=== PATIENT | female | born 1975 | race Caucasian/White ===

== ENCOUNTER → 2018-07-15 | Outpatient (CLI) | payer OTHER ==
[~2018-07-15] MED LIST: CHOL10002; CITA20 PO; CYCL10; CYCL10 PO; Flonase 0.05% N16 GM; GABA300 PO; HYDACE5 PO; IRON325 MG PO; IUD; LORA1 PO; Maxalt Mlt5 MG PO; NAPR500 PO; OMEP20ER PO; OXYC5; PROM25 PO; Percocet 5-3251 EACH PO; RXHYDACE PO; RXPROM25 PO; TAMS.4ER; TRAM50 PO; VENL150ER PO; Zofran Odt4 MG SL
[2018-07-15 08:31] LABS: BASOPHILS ABSOLUTE AUTO 0.04 K/mm3 (0.00-0.23); BASOPHILS PERCENT AUTO 1 % (0-2); EOSINOPHILS ABSOLUTE AUTO 0.08 K/mm3 (0.00-0.68); EOSINOPHILS PERCENT AUTO 1 % (0-6); Hematocrit 41.5 % (33.0-51.0); Hemoglobin 13.9 g/dL (11.5-16.0); IMMATURE GRAN ABSOLUTE AUTO 0.02 K/mm3 (0.00-0.10); IMMATURE GRAN PERCENT AUTO 0 % (0-1); LYMPHOCYTES ABSOLUTE AUTO 1.65 K/mm3 (0.84-5.20); LYMPHOCYTES PERCENT AUTO 24 % (21-46); MONOCYTES PERCENT AUTO 7 % (4-13); Mean Corpuscular HGB 29.3 pg (26.0-34.0); Mean Corpuscular HGB Conc 33.5 g/dL (31.5-36.5); Mean Corpuscular Volume 88 fL (80-100); Mean Platelet Volume 9.8 fL (9.1-12.4); NEUTROPHILS ABSOLUTE AUTO 4.61 K/mm3 (1.96-9.15); NEUTROPHILS PERCENT AUTO 67 % (41-73); Platelet Count 298 K/mm3 (150-400); RDW Coefficient Variation 12.5 % (11.7-14.2); Red Blood Cell Count 4.74 M/mm3 (3.80-5.20)
[2018-07-15 08:44] LABS: Alanine Aminotransfer (ALT/SGP 28 U/L (12-78); Albumin, Blood 3.6 g/dL (3.4-5.0); Albumin/Globulin Ratio 1.1 (0.8-1.8); Alk Phos 107 U/L (40-126); Anion Gap 9 mmol/L (6-16); Aspartate Aminotrans (AST/SGOT 15 U/L (12-37); Bilirubin, Total 0.4 mg/dL (0.1-1.0); Blood Urea Nitrogen 11 mg/dL (8-24); Bun/Creatinine Ratio 15.9 (12.0-20.0); CO2, Blood 26 mmol/L (21-32); Calcium, Blood 9.8 mg/dL (8.5-10.1); Chloride, Blood 104 mmol/L (98-108); Creatinine, Blood 0.69 mg/dL (0.40-1.00); Globulin, Blood 3.4 g/dL (2.2-4.0); Glomerular Filtration Rate >60 (60-); Glucose, Blood 95 mg/dL (70-99); Potassium, Blood 4.1 mmol/L (3.5-5.5); Sodium, Blood 139 mmol/L (136-145)
== END | disposition home or self-care (01) ==
LOC: LAB EV 08:13 → LAB SHORT 08:13
PROVIDERS: General Practice
DX: R10.9 Unspecified abdominal pain (principal)
CPT/HCPCS: 80053; 85025

== ENCOUNTER → 2018-07-19 | Outpatient (CLI) | payer OTHER ==
[2018-07-19 08:24] LABS: BASOPHILS ABSOLUTE AUTO 0.04 K/mm3 (0.00-0.23); BASOPHILS PERCENT AUTO 1 % (0-2); EOSINOPHILS PERCENT AUTO 2 % (0-6); Hematocrit 41.8 % (33.0-51.0); Hemoglobin 13.9 g/dL (11.5-16.0); IMMATURE GRAN ABSOLUTE AUTO 0.03 K/mm3 (0.00-0.10); IMMATURE GRAN PERCENT AUTO 1 % (0-1); LYMPHOCYTES ABSOLUTE AUTO 1.72 K/mm3 (0.84-5.20); LYMPHOCYTES PERCENT AUTO 31 % (21-46); MONOCYTES ABSOLUTE AUTO 0.35 K/mm3 (0.16-1.47); MONOCYTES PERCENT AUTO 6 % (4-13); Mean Corpuscular HGB 29.1 pg (26.0-34.0); Mean Corpuscular HGB Conc 33.3 g/dL (31.5-36.5); Mean Corpuscular Volume 88 fL (80-100); Mean Platelet Volume 9.6 fL (9.1-12.4); NEUTROPHILS ABSOLUTE AUTO 3.29 K/mm3 (1.96-9.15); NEUTROPHILS PERCENT AUTO 60 % (41-73); Platelet Count 293 K/mm3 (150-400); RDW Coefficient Variation 12.7 % (11.7-14.2); RDW Standard Deviation 40.1 fL (35.1-46.3); Red Blood Cell Count 4.77 M/mm3 (3.80-5.20); White Blood Cell Count 5.53 K/mm3 (4.00-11.30)
== END | disposition home or self-care (01) ==
LOC: LAB EV 08:20 → LAB SHORT 08:20
PROVIDERS: Physician Assistant
DX: R10.2 Pelvic and perineal pain (principal)
CPT/HCPCS: 85025

== ENCOUNTER → 2018-10-19 | Outpatient (CLI) | payer OTHER ==
[~2018-10-19] MED LIST changes: +AIMOVIG AU70 MG/1 ML SC; -CYCL10; -OMEP20ER PO; +OMEPRAZOLE MAGN20 MG PO
[2018-10-19 15:19] LABS: BASOPHILS ABSOLUTE AUTO 0.05 K/mm3 (0.00-0.23); BASOPHILS PERCENT AUTO 1 % (0-2); EOSINOPHILS ABSOLUTE AUTO 0.11 K/mm3 (0.00-0.68); EOSINOPHILS PERCENT AUTO 2 % (0-6); Hematocrit 42.4 % (33.0-51.0); Hemoglobin 13.6 g/dL (11.5-16.0); IMMATURE GRAN ABSOLUTE AUTO 0.02 K/mm3 (0.00-0.10); IMMATURE GRAN PERCENT AUTO 0 % (0-1); LYMPHOCYTES ABSOLUTE AUTO 1.94 K/mm3 (0.84-5.20); LYMPHOCYTES PERCENT AUTO 26 % (21-46); MONOCYTES ABSOLUTE AUTO 0.47 K/mm3 (0.16-1.47); MONOCYTES PERCENT AUTO 6 % (4-13); Mean Corpuscular HGB 28.8 pg (26.0-34.0); Mean Corpuscular HGB Conc 32.1 g/dL (31.5-36.5); Mean Corpuscular Volume 90 fL (80-100); Mean Platelet Volume 9.9 fL (9.1-12.4); NEUTROPHILS ABSOLUTE AUTO 4.98 K/mm3 (1.96-9.15); NEUTROPHILS PERCENT AUTO 66 % (41-73); Platelet Count 327 K/mm3 (150-400); RDW Coefficient Variation 12.5 % (11.7-14.2); RDW Standard Deviation 41.1 fL (35.1-46.3); Red Blood Cell Count 4.72 M/mm3 (3.80-5.20); White Blood Cell Count 7.57 K/mm3 (4.00-11.30)
== END | disposition home or self-care (01) ==
LOC: LAB SHORT 13:54 → LAB 13:54
PROVIDERS: Obstetrics & Gynecology
DX: Z01.812 Encounter for preprocedural laboratory examination (principal); N73.6 Female pelvic peritoneal adhesions (postinfective); R10.2 Pelvic and perineal pain; G89.29 Other chronic pain
CPT/HCPCS: 36415; 85025

== ENCOUNTER 2018-10-25 08:44 | Day surgery (SDC) | payer OTHER ==
--- NOTE | 2018-10-25 09:23 | NUR ---
Ambulatory in Day Surgery History, Chart, Medications and Allergies reviewed before start of procedure. Lungs clear T/O to Auscultation. Patient confirms NPO status and agrees with scheduled surgery. Pre-Op teaching done. Pt verbalizes understanding.
[2018-10-25 17:24] LABS: BASOPHILS ABSOLUTE AUTO 0.01 K/mm3 (0.00-0.23); BASOPHILS PERCENT AUTO 0 % (0-2); EOSINOPHILS PERCENT AUTO 0 % (0-6); Hematocrit 39.2 % (33.0-51.0); Hemoglobin 12.7 g/dL (11.5-16.0); IMMATURE GRAN ABSOLUTE AUTO 0.04 K/mm3 (0.00-0.10); IMMATURE GRAN PERCENT AUTO 0 % (0-1); LYMPHOCYTES ABSOLUTE AUTO 0.46 K/mm3 (0.84-5.20); LYMPHOCYTES PERCENT AUTO 4 % (21-46); MONOCYTES ABSOLUTE AUTO 0.29 K/mm3 (0.16-1.47); MONOCYTES PERCENT AUTO 2 % (4-13); Mean Corpuscular HGB 29.3 pg (26.0-34.0); Mean Corpuscular HGB Conc 32.4 g/dL (31.5-36.5); Mean Corpuscular Volume 91 fL (80-100); Mean Platelet Volume 9.7 fL (9.1-12.4); NEUTROPHILS ABSOLUTE AUTO 11.52 K/mm3 (1.96-9.15); NEUTROPHILS PERCENT AUTO 94 % (41-73); Platelet Count 291 K/mm3 (150-400); RDW Coefficient Variation 12.5 % (11.7-14.2); Red Blood Cell Count 4.33 M/mm3 (3.80-5.20); White Blood Cell Count 12.32 K/mm3 (4.00-11.30)
--- NOTE | 2018-10-25 18:08 | NUR ---
SHIFT SUMMARY: STABLE IN BED PT POD0 LAVH. PT IS IN BED EATING DINNER. PT HAS HAD FIRST COURSE OF ABX, LACTATED RINGERS RUNNING. C/O PAIN 5/10, PT STATES ACCEPTABLE LEVEL OF 5. PAIN MEDS ADMINISTERED PER PRN. LAPROSCOPIC SITES MINIMAL/NO DRAINAGE. STERI STRIPS IN PLACE RLQ AND LLQ, BAND AID IN PLACE MIDLINE. ARCHER IN PLACE, DRAINING, PATENT CLEAR/PINKISH.
[2018-10-26 04:52] LABS: BASOPHILS ABSOLUTE AUTO 0.02 K/mm3 (0.00-0.23); BASOPHILS PERCENT AUTO 0 % (0-2); EOSINOPHILS ABSOLUTE AUTO 0.01 K/mm3 (0.00-0.68); EOSINOPHILS PERCENT AUTO 0 % (0-6); Hematocrit 35.8 % (33.0-51.0); Hemoglobin 11.7 g/dL (11.5-16.0); IMMATURE GRAN ABSOLUTE AUTO 0.05 K/mm3 (0.00-0.10); IMMATURE GRAN PERCENT AUTO 0 % (0-1); LYMPHOCYTES ABSOLUTE AUTO 1.58 K/mm3 (0.84-5.20); LYMPHOCYTES PERCENT AUTO 14 % (21-46); MONOCYTES ABSOLUTE AUTO 0.75 K/mm3 (0.16-1.47); MONOCYTES PERCENT AUTO 6 % (4-13); Mean Corpuscular HGB 29.2 pg (26.0-34.0); Mean Corpuscular HGB Conc 32.7 g/dL (31.5-36.5); Mean Corpuscular Volume 89 fL (80-100); Mean Platelet Volume 9.7 fL (9.1-12.4); NEUTROPHILS ABSOLUTE AUTO 9.31 K/mm3 (1.96-9.15); NEUTROPHILS PERCENT AUTO 79 % (41-73); Platelet Count 281 K/mm3 (150-400); RDW Coefficient Variation 12.5 % (11.7-14.2); RDW Standard Deviation 40.6 fL (35.1-46.3); Red Blood Cell Count 4.01 M/mm3 (3.80-5.20); White Blood Cell Count 11.72 K/mm3 (4.00-11.30)
--- NOTE | 2018-10-26 05:46 | NUR ---
SUMMARY POD #1 SHELDON DRSG'S REMAIN C/D/I. VSS. PT IS TOLERAING PO INTAKE. PAIN MANAGED WITH PO NORCO. ARCHER D/C WNL THIS AM. MINIMAL VAGINAL BLEEDING NOTED. RAMU PAD IN PLACE. CALL LIGHT IN REACH
[2018-10-26] MEDS ORDERED: Norco 5-325 Ta1 EACH PO (09:19)
[2018-10-26] MEDS ORDERED: Vivelle-Dot1 EAC1 TD (09:19)
[2018-10-26] MEDS ORDERED: IBUP800 PO (09:20)
[2018-10-26] MEDS ORDERED: DOCU100 PO (09:21)
--- NOTE | 2018-10-26 15:35 | NUR ---
DISCHARGE NOTE Pt is doing well and discharged at 1330 today. She is able to void, ambulate independently, and tolerate her diet. No bleeding noted at this time. Scripts given to spouse per pt request. Discharge teaching provided to pt and spouse, both verbalized understanding and denied any concerns. Discussed importance of f/u appt with provider, patient confirmed understanding. Pt states she feels comfortable going home.
== END 2018-10-26 15:33 | disposition home or self-care (01) ==
LOC: ORSCMMR 08:44 → ORD 10:00 → ORSCMMR 10:00 → ORD 11:30 → ORSCMMR 14:11 → SURS 14:11 → ORSCMMR 10-26 15:33 → ORD 11-08 07:30
PROVIDERS: Obstetrics & Gynecology
PROC: 0UT9FZZ Resection of Uterus, Via Natural or Artificial Opening With Percutaneous Endoscopic Assistance (ICD-10-PCS; principal; 2018-10-25 10:00)
PROC: 0UT0FZZ Resection of Right Ovary, Via Natural or Artificial Opening With Percutaneous Endoscopic Assistance (ICD-10-PCS; principal; 2018-10-25 10:00)
DX: R10.2 Pelvic and perineal pain (principal); N73.6 Female pelvic peritoneal adhesions (postinfective); N80.0 Endometriosis of uterus; N94.89 Other specified conditions associated with female genital organs and menstrual cycle; N83.11 Corpus luteum cyst of right ovary; M79.7 Fibromyalgia; E66.01 Morbid (severe) obesity due to excess calories; Z68.42 Body mass index [BMI] 45.0-49.9, adult
CPT/HCPCS: 36415; 85025; 88307; A9270-GY; C1729; J0690; J0694; J1100; J1885; J2250; J2405; J2704; J2710; J3010; J7030; J7120

== ENCOUNTER → 2023-07-17 | Outpatient (CLI) | payer OTHER ==
[~2023-07-17] MED LIST changes: +DOCU100 PO; +IBUP800 PO; +Norco 5-325 Ta1 EACH PO; +Vivelle-Dot1 EAC1 TD
[2023-07-19 03:38] LABS: A/G RATIO 1.6 (1.2-2.2); BILIRUBIN, TOTAL 0.4 mg/dL (0.0-1.2); CALCIUM, SERUM 10.2 mg/dL (8.7-10.2); CREATININE, SERUM 0.66 mg/dL (0.57-1.00); GLOBULIN, TOTAL 2.7 g/dL (1.5-4.5); POTASSIUM, SERUM 4.4 mmol/L (3.5-5.2)
[2023-07-19 06:07] LABS: HEMOGLOBIN A1C 5.6 % (4.8-5.6)
== END ==
LOC: LAB SHORT 10:01 → LAB 10:01
PROVIDERS: Nurse Practitioner Family
DX: F41.8 Other specified anxiety disorders (principal); R53.83 Other fatigue; R73.01 Impaired fasting glucose
CPT/HCPCS: 80053; 83036; 84443

== ENCOUNTER 2024-05-28 22:59 | Inpatient (IN) | payer OTHER ==
[~2024-05-28] VITALS: Ht 170.2 cm; Wt 138.8 kg
[2024-05-28 23:35] LABS: BASOPHILS ABSOLUTE AUTO 0.03 K/mm3 (0.00-0.23); BASOPHILS PERCENT AUTO 0 % (0-2); EOSINOPHILS ABSOLUTE AUTO 0.02 K/mm3 (0.00-0.68); EOSINOPHILS PERCENT AUTO 0 % (0-6); Hemoglobin 13.8 g/dL (11.5-16.0); IMMATURE GRAN ABSOLUTE AUTO 0.02 K/mm3 (0.00-0.10); IMMATURE GRAN PERCENT AUTO 0 % (0-1); LYMPHOCYTES ABSOLUTE AUTO 0.71 K/mm3 (0.84-5.20); LYMPHOCYTES PERCENT AUTO 7 % (21-46); MONOCYTES ABSOLUTE AUTO 0.34 K/mm3 (0.16-1.47); MONOCYTES PERCENT AUTO 3 % (4-13); Mean Corpuscular HGB 28.9 pg (26.0-34.0); Mean Corpuscular HGB Conc 32.9 g/dL (31.5-36.5); Mean Corpuscular Volume 88 fL (80-100); Mean Platelet Volume 9.5 fL (9.1-12.4); NEUTROPHILS ABSOLUTE AUTO 9.01 K/mm3 (1.96-9.15); NEUTROPHILS PERCENT AUTO 89 % (41-73); Platelet Count 299 K/mm3 (150-400); RDW Coefficient Variation 12.5 % (11.7-14.2); Red Blood Cell Count 4.78 M/mm3 (3.80-5.20); White Blood Cell Count 10.13 K/mm3 (4.00-11.30)
[2024-05-28 23:52] LABS: Albumin, Blood 3.5 g/dL (3.4-5.0); Albumin/Globulin Ratio 1.1 (0.8-1.8); Bilirubin, Total 0.5 mg/dL (0.1-1.0); Bun/Creatinine Ratio 26.5 (12.0-20.0); Creatinine, Blood 0.53 mg/dL (0.40-1.00); Globulin, Blood 3.1 g/dL (2.2-4.0); Potassium, Blood 4.5 mmol/L (3.5-5.5); Total Protein, Blood 6.6 g/dL (6.4-8.2)
[2024-05-29] MEDS ORDERED: NS 1,000 ML IV SCH ×4 (00:15→03:30)
[2024-05-29] MEDS ORDERED: Morphine Sulfate 4 MG/1 ML Injection IV ONE (00:25)
[2024-05-29] MEDS ORDERED: Ondansetron HCl 2 MG / ML 2ML Vial IV ONE (00:25)
[2024-05-29] MEDS ORDERED: Droperidol 5 mg/2 ml Vial IV ONE (00:30)
[2024-05-29] MEDS ORDERED: Piperacillin/Tazobactam Sod 4.5 GM in NS 100 ML IV ONE (02:30)
[2024-05-29] MEDS ORDERED: Ondansetron HCl 2 MG / ML 2ML Vial IV PRN (03:25)
[2024-05-29] MEDS ORDERED: Morphine Sulfate 4 MG/1 ML Injection IV PRN (03:25)
[2024-05-29] MEDS ORDERED: FLU VACC TS2024-25(6MOS UP)/PF 45 MCG/0.5 ML SYRINGE IM ONE (03:25)
[2024-05-29] MEDS ORDERED: Morphine Sulfate 4 MG/1 ML Injection ONE (03:29)
[2024-05-29] MEDS ORDERED: Acetaminophen 650 MG Supp PR PRN (03:30)
[2024-05-29] MEDS ORDERED: Acetaminophen 325 MG TABLET PO PRN (03:30)
[2024-05-29] MEDS ORDERED: Lactated Ringer's 1,000 ML IV SCH (04:00)
[2024-05-29] MEDS ORDERED: Cyclobenzaprine HCl 10 MG Tab PO PRN (05:10)
[2024-05-29 05:25] VITALS: BP 120/77
[2024-05-29] MEDS ORDERED: ESTRADIOL1 M1 PO (05:33)
[2024-05-29] MEDS ORDERED: Adderall Xr 2020 MG PO (05:35)
[2024-05-29] MEDS ORDERED: BUPROPION XL150 M1 PO (05:36)
[2024-05-29] MEDS ORDERED: Pantoprazole Sodium 40 MG Injection IV SCH (06:00)
[2024-05-29] MEDS ORDERED: Piperacillin/Tazobactam Sod 4.5 GM in NS 100 ML IV SCH (08:00)
[2024-05-29 08:20] VITALS: BP 137/79
[2024-05-29] MEDS ORDERED: Cholecalciferol 1000 Unit Tablet (=25MCG) PO SCH (09:00)
[2024-05-29] MEDS ORDERED: Docusate Sodium 100 MG Cap PO SCH (09:00)
[2024-05-29] MEDS ORDERED: Lactobacil 2-S.Thermo-Bifido 1 1 Cap PO SCH (09:00)
[2024-05-29 11:40] VITALS: BP 137/86
[2024-05-29 12:06] VITALS: BP 137/86
[2024-05-29 14:05] VITALS: BP 153/103
--- NOTE | 2024-05-29 14:24 | NUR ---
End of shift note/ Transfer note. Pt was able to transfer to [facility] this afternoon for further surgical care. Pt continues to be painful RUQ. Medicated per SEP. Pt has had elevated temperature, TMAX 101.8, PRN TN tylenol was given which reduced to 99.5. HR increases to 160s with movement, after resting HR settles to 110s. Family is aware of transfer and is currently in route to [facility]. All belongings were taken with Pt. Reports was phoned to [facility]
[2024-05-29] MEDS ORDERED: Gabapentin 300 MG Cap PO SCH (21:00)
[2024-05-29] MEDS ORDERED: Venlafaxine HCl 75 MG CapCR PO SCH (21:00)
== END 2024-05-29 14:20 | disposition short-term general hospital (02) | DRG 381 ==
LOC: ER 22:59 → PCU 05-29 03:22 → SURS 05-29 03:22 → PCU 05-29 05:13
PROVIDERS: Student in an Organized Health Care Education/Training Program; ADMIT Student in an Organized Health Care Education/Training Program
DX: K26.5 Chronic or unspecified duodenal ulcer with perforation (principal); Z68.42 Body mass index [BMI] 45.0-49.9, adult; E66.01 Morbid (severe) obesity due to excess calories; E66.813 Obesity, class 3; G47.33 Obstructive sleep apnea (adult) (pediatric); F41.9 Anxiety disorder, unspecified; G25.81 Restless legs syndrome; G43.909 Migraine, unspecified, not intractable, without status migrainosus; M79.7 Fibromyalgia; K29.80 Duodenitis without bleeding; Z98.84 Bariatric surgery status; Z88.8 Allergy status to other drugs, medicaments and biological substances; Z88.5 Allergy status to narcotic agent
CPT/HCPCS: 71045; 74177; 80053; 82947; 83690; 84484; 85025; 93005; 93010; 96361; 96374-59; 99285-25; A9270; J1790; J2270; J2470; J2543; J7030; J7120; Q9963; Q9967

== ENCOUNTER → 2024-10-06 | Outpatient (CLI) | payer OTHER ==
[~2024-10-06] MED LIST changes: +Adderall Xr 2020 MG PO; +BUPROPION XL150 M1 PO; +ESTRADIOL1 M1 PO
[2024-10-06 13:03] LABS: BASOPHILS ABSOLUTE AUTO 0.05 K/mm3 (0.00-0.23); BASOPHILS PERCENT AUTO 1 % (0-2); EOSINOPHILS ABSOLUTE AUTO 0.14 K/mm3 (0.00-0.68); EOSINOPHILS PERCENT AUTO 3 % (0-6); Hematocrit 43.9 % (33.0-51.0); Hemoglobin 14.3 g/dL (11.5-16.0); IMMATURE GRAN ABSOLUTE AUTO 0.01 K/mm3 (0.00-0.10); IMMATURE GRAN PERCENT AUTO 0 % (0-1); LYMPHOCYTES ABSOLUTE AUTO 1.78 K/mm3 (0.84-5.20); LYMPHOCYTES PERCENT AUTO 32 % (21-46); MONOCYTES ABSOLUTE AUTO 0.43 K/mm3 (0.16-1.47); MONOCYTES PERCENT AUTO 8 % (4-13); Mean Corpuscular HGB 28.5 pg (26.0-34.0); Mean Corpuscular HGB Conc 32.6 g/dL (31.5-36.5); Mean Corpuscular Volume 88 fL (80-100); Mean Platelet Volume 10.6 fL (9.1-12.4); NEUTROPHILS ABSOLUTE AUTO 3.15 K/mm3 (1.96-9.15); NEUTROPHILS PERCENT AUTO 57 % (41-73); Platelet Count 345 K/mm3 (150-400); RDW Coefficient Variation 12.7 % (11.7-14.2); RDW Standard Deviation 40.3 fL (35.1-46.3); Red Blood Cell Count 5.01 M/mm3 (3.80-5.20); White Blood Cell Count 5.56 K/mm3 (4.00-11.30)
[2024-10-06 14:16] LABS: Alanine Aminotransfer (ALT/SGP 82 U/L (12-78); Albumin/Globulin Ratio 1.1 (0.8-1.8); Alk Phos 170 U/L (50-136); Anion Gap 9 mmol/L (3-11); Aspartate Aminotrans (AST/SGOT 36 U/L (12-37); Bilirubin, Total 0.4 mg/dL (0.1-1.0); Blood Urea Nitrogen 17 mg/dL (8-24); Bun/Creatinine Ratio 22.3 (12.0-20.0); CHOL/HDL RATIO 2.4; CO2, Blood 26 mmol/L (21-32); Calcium, Blood 10.4 mg/dL (8.5-10.1); Chloride, Blood 105 mmol/L (98-108); Cholesterol 176 mg/dL (50-200); Creatinine, Blood 0.76 mg/dL (0.40-1.00); Ferritin, Serum 34 ng/mL (8-252); Globulin, Blood 3.7 g/dL (2.2-4.0); Glomerular Filtration Rate 98 (60-); Glucose, Blood 85 mg/dL (70-99); HDL Cholesterol 72 mg/dL (>39); Iron Serum 61 ug/dL (50-170); LDL/HDL RATIO 1.2; Low Density Lipoprotein Chol 87 mg/dL (0-110); Percent Saturation 16.4 % (15.0-50.0); Sodium, Blood 136 mmol/L (136-145); Total Iron Binding Capacity 371 ug/dL (250-450); Total Protein, Blood 7.7 g/dL (6.4-8.2); Triglycerides 85 mg/dL (30-160); Very Low Density Lipoprot Chol 17 mg/dL (6-32)
== END ==
LOC: LAB SHORT 11:14 → LAB 11:14
PROVIDERS: Nurse Practitioner Family
DX: Z13.6 Encounter for screening for cardiovascular disorders (principal); E53.8 Deficiency of other specified B group vitamins; E55.9 Vitamin D deficiency, unspecified; E61.1 Iron deficiency; K26.5 Chronic or unspecified duodenal ulcer with perforation; Z91.89 Other specified personal risk factors, not elsewhere classified
CPT/HCPCS: 80053; 80061; 82306; 82607; 82728; 82746; 83540; 83550; 85025